=== PATIENT | male | born 1960 | race Caucasian/White ===

== ENCOUNTER 2025-02-08 11:23 | Inpatient (IN) | payer BC ==
[2025-02-08 11:33] VITALS: BMI 30.8
[2025-02-08] MEDS ORDERED: ACETAMINOPHEN INJECTION 100 ML ONE (12:01)
[2025-02-08] MEDS: ACETAMINOPHEN 1000 MG/100 ML BAG IVPB ONE ×2 (12:20→22:18)
[2025-02-08] MEDS: SODIUM CHLORIDE 0.9% 500 ML INFUS.BAG IV ONE (12:20)
[2025-02-08 12:47] LABS: ABSOLUTE IMMATURE GRANULOCYTES 0.03 x10^3/uL (0.0-0.031); BASOPHILS # 0.03 x10^3/uL (0.01-0.08); EOSINOPHIL % 0.0 % (0.8-7.0); EOSINOPHILS # 0.00 x10^3/uL (0.04-0.54); MCHC 35.2 g/dl (32.3-36.5); MEAN CELL VOLUME 87.6 fl (79.0-92.2); MEAN PLT VOLUME 9.6 fl (9.4-12.4); MONOCYTE # 0.14 x10^3/uL (0.30-0.82); MONOCYTE % 1.5 % (5.3-12.2); RDW 12.0 % (12.2-16.4)
[2025-02-08 13:00] LABS: ALK PHOS 44 U/L (45-117); CO2 26 mmol/L (21-32); CREATININE 1.3 mg/dl (0.6-1.3); GLUCOSE,RANDOM 168 mg/dl (74-106); SGOT/AST 67 U/L (15-37); SGPT/ALT 78 U/L (7-52); TOT PROT 6.1 g/dl (6.4-8.2)
[2025-02-08 13:15] LABS: AMORP URATES FEW /hpf (NONE SEEN); EPITHELIAL CELLS 0-5 /hpf
[2025-02-08 13:16] LABS: URINE HYALINE CAST 0-2 /lpf
[2025-02-08 14:11] LABS: LACTIC ACID 2.8 mmol/L (0.4-2.0)
[2025-02-08] MEDS: LACTATED RINGERS SOLUTION 1000 ML INFUS.BAG IV ONE (15:52)
[2025-02-08] MEDS: CEFTRIAXONE 1 GM in DEXTROSE 5%-WATER - 100 ML IVPB ONE (16:00)
[2025-02-08 16:20] LABS: HEP A VIRUS IGM NON-REACTIVE (NONREACTIVE)
[2025-02-08 16:21] LABS: HEPATITIS B SURF AG NON-MATERN NON-REACTIVE (NONREACTIVE)
[2025-02-08 16:22] LABS: HEPATITIS A VIRUS IgG II NONREACTIVE (NONREACTIVE)
[2025-02-08 18:00] LABS: LACTIC ACID 2.3 mmol/L (0.4-2.0)
[2025-02-08] MEDS: SODIUM CHLORIDE 1,000 ML IV SCH (18:25)
[2025-02-08] MEDS: CEFTRIAXONE 1,000 MG in DEXTROSE 5%-WATER - 50 ML IVPB ONE (19:03)
[2025-02-09] MEDS: ZOLPIDEM TARTRATE 5 MG TABLET PO ONE (00:40)
[2025-02-09] MEDS: POTASSIUM CHLORIDE ORAL LIQUID 20 MEQ/15 ML PO ONE (00:40)
[2025-02-09] MEDS: PIPERACILLIN/TAZOB 4.5 GM 4.5 GM in DEXTROSE 5%-WATER 100 ML IVPB SCH (02:20)
[2025-02-09] MEDS ORDERED: VANCOMYCIN 1,000 MG in DEXTROSE 5%-WATER - 250 ML IVPB SCH (05:15)
[2025-02-09] MEDS: VANCOMYCIN/WATER 2 GRAMS 2,000 MG/400 ML PIGGYBACK IVPB ONE (06:10)
[2025-02-09] MEDS: ACETAMINOPHEN 1000 MG/100 ML BAG IVPB PRN (07:26)
[2025-02-09] MEDS: AZITHROMYCIN IVPB 500 MG/250 ML BAG IVPB ONE (07:53)
[2025-02-09 08:46] LABS: IMMATURE PLATELET FRACTION # 2.40 x10^3/uL; MCHC 34.9 g/dl (32.3-36.5); MEAN CELL VOLUME 88.3 fl (79.0-92.2); MEAN PLT VOLUME 10.2 fl (9.4-12.4); RDW 12.2 % (12.2-16.4)
[2025-02-09 09:15] LABS: GLUCOSE,RANDOM 141.0 mg/dL (74-106); TOT PROT 5.1 g/dl (6.4-8.2)
[2025-02-09 09:16] LABS: CO2 23.0 mmol/L (21-32)
[2025-02-09 09:17] LABS: ALK PHOS 40.0 U/L (40-150)
[2025-02-09 09:20] LABS: SGOT/AST 90.0 U/L (5-34); SGPT/ALT 68.0 U/L (0-55)
[2025-02-09 09:21] LABS: CREATININE 1.05 mg/dL (0.55-1.3)
[2025-02-09] MEDS: amLODIPine BESYLATE 2.5 MG TABLET (FP) PO SCH (10:44)
[2025-02-09] MEDS: POTASSIUM CHLORIDE ORAL LIQUID 20 MEQ/15 ML PO SCH (12:53)
[2025-02-09] MEDS: NAPH,MB-DB/K PH,MBDB POWDER PACKET PO SCH (12:53)
[2025-02-09 17:44] LABS: EPI CELLS 6 /uL (0-25.1); HYALINE CASTS 0 /uL (0-3.1); URINE APPEARANCE CLEAR; URINE BACTERIA 10 /uL (0-1359); URINE BILIRUBIN NEGATIVE (NEGATIVE); URINE COLOR YELLOW; URINE GLUCOSE (UA) NEGATIVE (NEGATIVE); URINE KETONE NEGATIVE (NEGATIVE); URINE LEUK ESTERASE NEGATIVE (NEGATIVE); URINE NITRITE NEGATIVE (NEGATIVE); URINE PROTEIN 1+ (NEGATIVE); URINE RBC 46 /uL (0-23.9); URINE UROBILINOGEN 2.0 mg/dL (0.2-1.0); URINE WBC 7 /uL (0-25.8)
[2025-02-09] MEDS: ZOLPIDEM TARTRATE 5 MG TABLET PO PRN (21:20)
[2025-02-09] MEDS ORDERED: VANCOMYCIN 2,000 MG in DEXTROSE 5%-WATER - 500 ML IVPB SCH (22:00)
[2025-02-10 07:38] LABS: IMMATURE PLATELET FRACTION # 3.00 x10^3/uL; MCHC 33.9 g/dl (32.3-36.5); MEAN CELL VOLUME 90.3 fl (79.0-92.2); MEAN PLT VOLUME 10.4 fl (9.4-12.4); RDW 12.4 % (12.2-16.4)
[2025-02-10 08:08] LABS: GLUCOSE,RANDOM 120.0 mg/dL (74-106); TOT PROT 5.2 g/dl (6.4-8.2)
[2025-02-10 08:10] LABS: CO2 25.0 mmol/L (21-32)
[2025-02-10 08:14] LABS: CREATININE 1.11 mg/dL (0.55-1.3); SGOT/AST 93.0 U/L (5-34); SGPT/ALT 74.0 U/L (0-55)
[2025-02-10] MEDS: SODIUM CHLORIDE 1,000 ML IV SCH (08:36)
[2025-02-10 09:28] LABS: ALK PHOS 42.0 U/L (40-150)
[2025-02-11] MEDS: PIPERACILLIN/TAZOB 4.5 GM 4.5 GM in DEXTROSE 5%-WATER 100 ML IVPB SCH (02:12)
[2025-02-11] MEDS ORDERED: PIPERACILLIN/TAZOB 4.5 GM 4.5 GM in DEXTROSE 5%-WATER 100 ML IVPB SCH (03:00)
[2025-02-11] MEDS: IBUPROFEN 600 MG TABLET (FP) PO ONE (03:34)
[2025-02-11] MEDS: ENOXAPARIN NA (PORCINE) 40 MG/0.4 ML DISP.SYRIN SQ SCH (09:10)
[2025-02-11 09:46] LABS: ABSOLUTE IMMATURE GRANULOCYTES 0.11 x10^3/uL (0.0-0.031); BASOPHILS # 0.04 x10^3/uL (0.01-0.08); EOSINOPHIL % 1.2 % (0.8-7.0); EOSINOPHILS # 0.09 x10^3/uL (0.04-0.54); MCHC 33.6 g/dl (32.3-36.5); MEAN CELL VOLUME 89.9 fl (79.0-92.2); MEAN PLT VOLUME 10.2 fl (9.4-12.4); MONOCYTE # 0.78 x10^3/uL (0.30-0.82); MONOCYTE % 10.0 % (5.3-12.2); RDW 12.3 % (12.2-16.4)
[2025-02-11 09:54] LABS: INR 1.15 (0.83-1.09); PROTHROMBIN TIME (PATIENT) 12.6 SEC (9.7-13.0)
[2025-02-11 10:28] LABS: GLUCOSE,RANDOM 145.0 mg/dL (74-106); TOT PROT 5.0 g/dl (6.4-8.2)
[2025-02-11 10:29] LABS: CO2 23.0 mmol/L (21-32)
[2025-02-11 10:32] LABS: ALK PHOS 43.0 U/L (40-150)
[2025-02-11 10:34] LABS: CREATININE 1.13 mg/dL (0.55-1.3); SGOT/AST 86.0 U/L (5-34); SGPT/ALT 81.0 U/L (0-55)
[2025-02-11] MEDS: CELECOXIB 100 MG CAPSULE PO SCH (21:36)
[2025-02-12] MEDS ORDERED: LIDOCAINE HCL 2% (20ML MULTI-DOSE VIAL) ONE (07:12)
[2025-02-12] MEDS ORDERED: BUPIVACAINE HCL/PF 0.5% (5MG/ML) 10 ML VIAL ONE (07:13)
[2025-02-12] MEDS ORDERED: MIDAZOLAM HCL 2 MG/2 ML SINGLE DOSE VIAL ONE (07:37)
[2025-02-12] MEDS ORDERED: PROPOFOL 20 ML ONE (07:37)
[2025-02-12] MEDS: BUPIVACAINE HCL/PF 0.5% (5 MG/ML) 30 ML VIAL IJ ONE (07:40)
[2025-02-12] MEDS: LIDOCAINE HCL 2% (50ML VIAL) INF ONE (07:40)
[2025-02-12] MEDS ORDERED: ACETAMINOPHEN 1000 MG/100 ML BAG IVPB PRN (08:07)
[2025-02-12 08:09] LABS: MCHC 33.9 g/dl (32.3-36.5); MEAN CELL VOLUME 90.6 fl (79.0-92.2); MEAN PLT VOLUME 10.2 fl (9.4-12.4); RDW 12.4 % (12.2-16.4)
[2025-02-12] MEDS ORDERED: SODIUM CHLORIDE 1,000 ML IV SCH (08:32)
[2025-02-12 08:40] LABS: GLUCOSE,RANDOM 116.0 mg/dL (74-106); TOT PROT 6.1 g/dl (6.4-8.2)
[2025-02-12 08:41] LABS: CO2 24.0 mmol/L (21-32)
[2025-02-12 08:43] LABS: ALK PHOS 57.0 U/L (40-150)
[2025-02-12 08:46] LABS: CREATININE 1.12 mg/dL (0.55-1.3); SGOT/AST 164.0 U/L (5-34); SGPT/ALT 183.0 U/L (0-55)
[2025-02-12 08:48] LABS: MCHC 34.3 g/dl (32.3-36.5); MEAN CELL VOLUME 89.4 fl (79.0-92.2); MEAN PLT VOLUME 10.0 fl (9.4-12.4); RDW 12.4 % (12.2-16.4)
[2025-02-12 09:01] VITALS: RESP 18
[2025-02-12] MEDS: PIPERACILLIN/TAZOB 4.5 GM 4.5 GM in DEXTROSE 5%-WATER 100 ML IVPB SCH (10:40)
[2025-02-12] MEDS: CELECOXIB 100 MG CAPSULE PO SCH (10:41)
[2025-02-12] MEDS: amLODIPine BESYLATE 2.5 MG TABLET (FP) PO SCH (10:41)
[2025-02-12 14:07] LABS: WEST NILE VIRUS AB SERUM,IGM Negative (Negative)
[2025-02-12] MEDS: ZOLPIDEM TARTRATE 5 MG TABLET PO PRN (22:46)
[2025-02-13] MEDS: ACETAMINOPHEN 1000 MG/100 ML BAG IVPB PRN (02:22)
[2025-02-13 08:06] LABS: MCHC 33.6 g/dl (32.3-36.5); MEAN CELL VOLUME 90.5 fl (79.0-92.2); MEAN PLT VOLUME 10.1 fl (9.4-12.4); RDW 12.2 % (12.2-16.4)
[2025-02-13 08:28] LABS: GLUCOSE,RANDOM 107.0 mg/dL (74-106); TOT PROT 5.8 g/dl (6.4-8.2)
[2025-02-13 08:29] LABS: CO2 25.0 mmol/L (21-32)
[2025-02-13 08:31] LABS: ALK PHOS 47.0 U/L (40-150)
[2025-02-13 08:34] LABS: CREATININE 1.2 mg/dL (0.55-1.3); SGOT/AST 73.0 U/L (5-34); SGPT/ALT 130.0 U/L (0-55)
[2025-02-13] MEDS: ENOXAPARIN NA (PORCINE) 40 MG/0.4 ML DISP.SYRIN SQ SCH (09:25)
[2025-02-13 09:46] VITALS: BP 154/83; PULSE 57; TEMP 98.1
== END 2025-02-13 14:10 | disposition home or self-care (01) | DRG 872 ==
LOC: FER 11:23 → J6S 12:00 → FER 20:50
PROVIDERS: ADMIT Student in an Organized Health Care Education/Training Program; ATTEND Internal Medicine
PROC: 0Y9N0ZZ Drainage of Left Foot, Open Approach (ICD-10-PCS; principal; 2025-02-12 07:30)
DX: A41.9 Sepsis, unspecified organism (principal); L02.612 Cutaneous abscess of left foot; M62.82 Rhabdomyolysis; E78.5 Hyperlipidemia, unspecified; I10 Essential (primary) hypertension; R79.89 Other specified abnormal findings of blood chemistry; G47.00 Insomnia, unspecified; K76.0 Fatty (change of) liver, not elsewhere classified; M10.9 Gout, unspecified; R16.2 Hepatomegaly with splenomegaly, not elsewhere classified; L03.032 Cellulitis of left toe; R74.01 Elevation of levels of liver transaminase levels
CPT/HCPCS: 36415; 71046-TC-FY; 71250-TC; 73630-TC-LT; 73718-TC-LT; 74176-TC; 74181-TC; 76705-TC; 80053; 81003; 81015; 82248; 82465; 82550; 82570; 83036; 83605; 83735; 84100; 84156; 84478; 84550; 85025; 85027; 85610; 86140; 86618; 86704; 86708; 86788; 86789; 86803; 87040; 87070; 87077; 87205; 87207; 87340; 87517; 87637-QW; 87899; 93306-TC; 94760; 99285-25